=== PATIENT | female | born 1960 | race Caucasian/White ===

== ENCOUNTER → 2020-11-22 | Outpatient (CLI) | payer OTHER ==
[~2020-11-22] MED LIST: ASCO500T8 PO; CETI-158 PO; CHOL10003 PO; GABA300C PO; UBID100C24 PO; VITA1CAP PO
[2020-11-22 09:27] LABS: BASOPHILS % (AUTO) 1 % (0-1); EOSINOPHILS % (AUTO) 4 % (1-7); LYMPHOCYTES % (AUTO) 22 % (22-44); MEAN CORPUSCULAR HEMOGLOBIN 31.2 pg (27.0-34.8); MEAN CORPUSCULAR HGB CONC 33.6 g/dL (32.4-35.8); MEAN PLATELET VOLUME 8.9 fL (7.4-10.4); MONOCYTES % (AUTO) 7 % (2-9); NEUTROPHILS % (AUTO) 66 % (42-75); PLATELET COUNT 298 x10^3/uL (130-400); RED CELL DISTRIBUTION WIDTH 14.5 % (9.6-15.2)
[2020-11-22 09:33] LABS: CHLORIDE 109 mmol/L (98-107)
[2020-11-22 09:34] LABS: INTERNATIONAL NORMALIZED RATIO 0.98 (0.93-1.1); PROTHROMBIN TIME 10.5 Seconds (9.6-11.5)
[2020-11-22 09:39] LABS: ALANINE AMINOTRANSFERASE 36 U/L (12-78); ALBUMIN 3.7 g/dL (3.4-5.0); ALKALINE PHOSPHATASE 91 U/L (45-117); BILIRUBIN,TOTAL 0.7 mg/dL (0.2-1.0); CREATININE 0.77 mg/dL (0.55-1.02); TOTAL PROTEIN 7.6 g/dL (6.4-8.2)
[2020-11-22 10:09] LABS: ANION GAP 7 mmol/L (5-15)
== END | disposition home or self-care (01) ==
LOC: STAR 07:27
PROVIDERS: ATTEND Obstetrics & Gynecology
DX: Z01.818 Encounter for other preprocedural examination (principal); C54.1 Malignant neoplasm of endometrium; R93.89 Abnormal findings on diagnostic imaging of other specified body structures; N95.0 Postmenopausal bleeding; R87.612 Low grade squamous intraepithelial lesion on cytologic smear of cervix (LGSIL); M51.34 Other intervertebral disc degeneration, thoracic region; K44.9 Diaphragmatic hernia without obstruction or gangrene; R94.31 Abnormal electrocardiogram [ECG] [EKG]
CPT/HCPCS: 36415; 71046; 80053; 85025; 85610; 85730; 86304; 93005

== ENCOUNTER 2020-11-28 08:53 | Day surgery (SDC) | payer OTHER ==
[~2020-11-28] VITALS: Ht 165.1 cm; Wt 113.7 kg
[2020-11-28 09:28] VITALS: BP 138/80
[2020-11-28] MEDS ORDERED: CHLORHEXIDINE 15 ML UDC PO ONE (09:30)
[2020-11-28] MEDS ORDERED: LACTATED RINGERS 1,000 ML IV SCH (09:30)
[2020-11-28] MEDS ORDERED: CEFOTETAN PMX 2GM/50ML 50 ML IVPB ONE (11:00)
[2020-11-28] MEDS ORDERED: BUPIVACAINE/PF-EPI 0.25% 1:200K ONE (12:51)
[2020-11-28] MEDS ORDERED: HEPARIN 1,000 UNITS/ML, 10ML ONE (12:51)
[2020-11-28] MEDS ORDERED: FENTANYL PF 100 MCG/2ML ONE ×6 (13:32→16:06)
[2020-11-28] MEDS ORDERED: METHOCARBAMOL 1,000 MG in DEXTROSE 5% 100 ML IV PRN (14:00)
[2020-11-28] MEDS ORDERED: hydrALAzine 20 MG/ML, 1ML IV PRN (14:00)
[2020-11-28] MEDS ORDERED: MEPERIDINE/PF 25MG/0.5ML IVPush PRN (14:00)
[2020-11-28] MEDS ORDERED: HYDROmorphone 1 MG/ML, 1ML INJ IVPush PRN (14:00)
[2020-11-28] MEDS ORDERED: KETOROLAC 30 MG/1 ML IVPush PRN (14:00)
[2020-11-28] MEDS ORDERED: ONDANSETRON 2MG/ML, 2ML IVPush PRN (14:00)
[2020-11-28] MEDS ORDERED: EPHEDRINE 50 MG/ML, 1ML IVPush PRN (14:00)
[2020-11-28] MEDS ORDERED: LORazepam 2 MG/ML, 1ML IVPush PRN (14:00)
[2020-11-28] MEDS ORDERED: PROMETHAZINE 25 MG/ML, 1ML IVPush PRN (14:00)
[2020-11-28] MEDS ORDERED: LABETALOL 5MG/ML, 20ML IV PRN (14:00)
[2020-11-28] MEDS ORDERED: OXYcodone 5 MG/5 ML ORAL.SOL UDC PO PRN (14:00)
[2020-11-28] MEDS ORDERED: ACETAMINOPHEN 325 MG TABLET PO PRN (14:00)
[2020-11-28] MEDS ORDERED: INDOCYANINE GREEN 25 MG VIAL ONE (14:49)
[2020-11-28] MEDS ORDERED: PROPOFOL 50 ML ONE (15:16)
[2020-11-28] MEDS ORDERED: PROPOFOL 10 MG/ML, 20ML ONE (15:39)
[2020-11-28] MEDS ORDERED: SUGAMMADEX 200 MG/2 ML IVPush ONE (15:39)
[2020-11-28] MEDS ORDERED: SUCCINYLCHOLINE 20 MG/ML, 10ML ONE (15:39)
[2020-11-28] MEDS ORDERED: GLYCOPYRROLATE 0.2MG/1ML, 5ML ONE (15:39)
[2020-11-28] MEDS ORDERED: NEOSTIGMINE 1 MG/ML, 10ML ONE (15:39)
[2020-11-28] MEDS ORDERED: CEFAZOLIN 1,000 MG ONE (15:39)
[2020-11-28] MEDS ORDERED: ONDANSETRON 2MG/ML, 2ML ONE ×2 (15:39→20:05)
[2020-11-28] MEDS ORDERED: ROCURONIUM 10MG/ML,5ML ONE (15:39)
[2020-11-28] MEDS ORDERED: DEXAMETHASONE 4 MG/ML, 1ML ONE (15:39)
[2020-11-28] MEDS ORDERED: OXYcodone 5 MG/5 ML ORAL.SOL UDC ONE (16:06)
[2020-11-28] MEDS: FENTANYL PF 100 MCG/2ML IV PRN ×2 (16:07→16:48)
[2020-11-28] MEDS ORDERED: LORazepam 2 MG/ML, 1ML ONE (16:18)
== END 2020-11-28 20:30 | disposition home or self-care (01) ==
LOC: OUT 08:53
PROVIDERS: ATTEND Obstetrics & Gynecology
DX: C54.1 Malignant neoplasm of endometrium (principal); N95.0 Postmenopausal bleeding; E66.9 Obesity, unspecified; Z88.0 Allergy status to penicillin; Z91.048 Other nonmedicinal substance allergy status; Z79.899 Other long term (current) drug therapy; Z98.890 Other specified postprocedural states; Z68.41 Body mass index [BMI] 40.0-44.9, adult
CPT/HCPCS: 36415; 38571; 58571; 86850; 86900; 86923; 88112; 88305; 88307; 88309; 88331; 88333; J0330; J0690; J1100; J1644; J2060; J2405; J2704; J2710; J2800; J3010; J7120; S2900